=== PATIENT | male | born 1965 | race Caucasian/White ===

== ENCOUNTER 2016-10-02 19:35 | Emergency (ER) | payer BC ==
[~2016-10-02] VITALS: Ht 172.7 cm; Wt 68.0 kg
[2016-10-02 19:39] VITALS: BP 126/81
== END 2016-10-02 20:12 | disposition home or self-care (01) ==
LOC: ER 19:36
DX: K40.90 Unilateral inguinal hernia, without obstruction or gangrene, not specified as recurrent (principal); I10 Essential (primary) hypertension; I25.2 Old myocardial infarction
CPT/HCPCS: 99281; A4606; Z7502; Z7610